=== PATIENT | female | born 1950 | race African-American/Black ===

== ENCOUNTER 2020-08-18 13:54 | Outpatient (RCR) | payer MEDICARE, OTHER | END 2020-11-16 | disposition home or self-care (01) | LOC: WSST | DX: R13.10 Dysphagia, unspecified (principal) ==

== ENCOUNTER → 2020-08-30 | Outpatient (CLI) | payer MEDICARE, OTHER | LOC: COL.RAD | DX: R13.10 Dysphagia, unspecified (principal) ==

== ENCOUNTER → 2020-11-18 | Outpatient (CLI) | payer MEDICARE, OTHER | LOC: COL.VAS 14:28 | DX: R06.02 Shortness of breath (principal) ==